=== PATIENT | male | born 2005 | race Caucasian/White ===

== ENCOUNTER 2023-11-26 14:27 | Emergency (ER) | payer OTHER, SELFPAY ==
[2023-11-26 14:28] VITALS: BP 140/79; PULSE 75; RESP 18; TEMP 36.6; O2SAT 99; BMI 23.6
--- NOTE | 2023-11-26 14:55 | HMH.EDGENADL ---
Discharge Plan Disposition Patient Disposition: Home, Self-Care Condition: Good Prescriptions Prescriptions: New ondansetron 4 mg tablet,disintegrating 4 mg PO Q6H PRN (Reason: nausea and vomiting) Qty: 14 0RF Referrals Follow up/Referrals: Provider,Referral, MD [Primary Care Provider] - See instructions Activity Restrictions/Add. Instructions Additional Instructions/Restrictions: You were seen in the ED today due to nausea and vomiting. Please stay hydrated at home. Prescription for Zofran for nausea has been provided. Return to the ED if symptoms worsen or if new concerning symptoms arise. Thank you. Clinical Impressions Clinical Impression: Gastroenteritis Instructions Patient Instructions: DI for Viral Gastroenteritis -- Adult Discharge ED Provider: Rom Gaspar General Adult HPI General Chief complaint: Nausea/Vomiting/Diarrhea Stated complaint: vomiting, abdominal pain Time Seen by Provider: 11/26/23 14:50 Mode of Arrival: Ambulatory Source of Information: Patient Limitations: No Limitations Description of Symptoms (Recalled from ER Triage Doc. by RN): Patient reports drinking alcohol on the and then woke up the vomiting. States he went to [facility] that day they gave him fluids and he signed out AMA. Presents today with the complaint of nausea and vomiting. History of Present Illness HPI narrative: Patient is an otherwise healthy 18-year-old male presenting due to nausea and vomiting. Patient's girlfriend is present to help provide history. Patient states he had a few alcoholic beverages on the night of 11/22. He woke up the next morning vomiting and presented to outside hospital. States he was given IV fluids and Zofran and ultimately he left the hospital. States he felt well yesterday however upon waking up this morning he again had nausea and vomiting. Patient states since presenting to the hospital today his symptoms have improved. Currently he denies any nausea or abdominal pain. States he has had some diarrhea. Denies any fevers, difficulty urinating. Related Data Previous Rx's Medication Instructions Recorded ondansetron 4 mg disintegrating 4 mg PO Q6H PRN nausea and 11/26/23 tablet vomiting #14 tabs Allergies Allergy/AdvReac Type Severity Reaction Status Date / Time No Known Allergies Allergy Verified 11/26/23 14:38 [facility] Disclaimer: The information contained in this section may have been updated after the patient was seen, as this information can be updated by other users. Social History Smoking Status: Current every day smoker alcohol intake: current current occupational status: employed Travel in the last 8 weeks: Inside the [place] ROS Obtained: Yes All systems reviewed & no additional complaints except as documented Gastrointestinal Gastrointestingal: Reports diarrhea, nausea and vomiting Physical Exam General General appearance: alert and in no apparent distress Head Head exam: atraumatic, normocephalic and normal inspection Eye Eye exam: Present normal appearance, PERRL and EOMI ENT ENT exam: Present normal exam, normal oropharynx, mucous membranes moist, TM's normal bilaterally and normal external ear exam Neck Neck exam: Present normal inspection, full ROM and trachea midline; Absent meningismus or lymphadenopathy Chest Chest inspection: Present normal inspection and symmetric chest wall rise; Absent tenderness Respiratory Respiratory exam: Present normal lung sounds bilaterally; Absent respiratory distress Cardiovascular Cardiovascular exam: Present regular rate and normal rhythm; Absent JVD Abdominal Exam Abdominal exam: Present soft and normal bowel sounds; Absent distention, tenderness or guarding Extremities Exam Extremities exam: Present normal inspection, full ROM and normal capillary refill; Absent calf tenderness Back Exam Back exam: Present normal inspection; Absent tenderness Neurological Exam Neurological exam: Present alert and oriented X3 Psychiatric Psychiatric exam: Present normal affect and normal mood Skin Skin exam: Present warm, dry, intact and normal color Lymphatic Lymphatic Findings: no adenopathy Medical Decision Making Daniel Inquiry Pt receiving controlled substance: No Daniel was queried for this patient: No Vital Signs: 11/26/23 14:28 11/26/23 15:15 Temperature 97.8 F Temperature Source Oral Pulse Rate 70 Pulse Rate [Radial] 75 Respiratory Rate 18 Blood Pressure 119/72 Blood Pressure [Right Arm] 140/79 Blood Pressure Mean [Right Arm] 99 Blood Pressure Source [Right Arm] Automatic Cuff Blood Pressure Position [Right Arm] Sitting 02 Sat by Pulse Oximetry 99 100 Oxygen Delivery Method Room Air Lab Data Lab Results 11/26/23 14:41: WBC 11.3, RBC 4.98, Hgb 15.3, Hct 44.2, MCV 88.8, MCH 30.8, MCHC 34.7, RDW 12.7, Plt Count 190, MPV 8.6, Neut % (Auto) 81.7 H, Lymph % (Auto) 12.3, [place] % (Auto) 5.3, Eos % (Auto) 0.4, Baso % (Auto) 0.4, Neut # (Auto) 9.3 H, Lymph # (Auto) 1.4, [place] # (Auto) 0.6, Eos # (Auto) 0.0, Baso # (Auto) 0.1, Sodium 137, Potassium 3.4 L, Chloride 105, Carbon Dioxide 26, Anion Gap 9.4, BUN 15, Creatinine 0.90, Estimated Creat Clear 134, Estimated GFR 108, Est GFR ( Amer) 130, Glucose 122 H, Calcium 9.5, Total Bilirubin 0.8, AST 34, ALT 28, Alkaline Phosphatase 63, Total Protein 7.4, Albumin 4.6, Globulin 2.8, Albumin/Globulin Ratio 1.6, Lipase 84 11/26/23 14:41 11/26/23 14:41 Orders (Tests/Meds): ED MEDICATIONS Generic Name Dose Route Start Last Admin Trade Name Freq PRN Reason Stop Dose Admin Sodium Chloride 10 ml 11/26/23 14:47 Sodium Chloride 0.9% 10ml Flush Syringe IV 12/26/23 14:46 NEEDED PRN Maintain IV Site Discontinued Medications Generic Name Dose Route Start Last Admin Trade Name Freq PRN Reason Stop Dose Admin Lactated Ringer's 1,000 mls @ 999 mls/hr 11/26/23 14:54 11/26/23 14:58 Lactated Ringer's 1000 Ml Bag IV 11/26/23 15:54 999 mls/hr .Q1H1M ONE Administration Potassium Chloride 40 meq 11/26/23 16:05 11/26/23 16:15 Potassium Chloride 20meq Tab PO 11/26/23 16:06 40 meq ONCE ONE Administration ORDERS Category Date Time Status CBC w/Auto Diff [Complete Blood Count Auto Diff] Stat Lab 11/26/23 14:41 Completed CMP [Comprehensive Metabolic Panel] Stat Lab 11/26/23 14:41 Completed Lipase Stat Lab 11/26/23 14:41 Completed Medical Decision Narrative: In summary, patient is otherwise healthy 18-year-old male, evaluated in the emergency department today due to nausea and vomiting. On arrival, patient is hemodynamically stable with normal vital signs. On examination, patient has nontender abdomen, overall well-appearing. Differential diagnosis includes but is not limited to gastroenteritis, acute intoxication, metabolic derangement. Patient given 1 L LR bolus. Workup initiated including CBC, CMP, lipase. Labs independently interpreted by me and significant for potassium 3.4, otherwise unremarkable labs. Patient given 40 mill equivalents oral potassium chloride repletion. On reevaluation, patient reports he feels well. Symptoms are controlled and he is tolerating oral intake without difficulty. He is appropriate for discharge at this time. Prescription for Zofran for nausea provided. Patient counseled on home care, given strict return precautions and agreeable to plan. Additional history was provided by patient's girlfriend. I considered the utility of obtaining imaging, but decided against this because patient has benign abdominal exam. I considered admitting the patient to the hospital for observation, and in shared decision-making with patient, decided on outpatient management. Critical Care Critical Care Time Critical Care Time: No
[2023-11-26] MEDS: LACTATED RINGERS 1000ML 1,000 ML 999 ML IV (14:58)
[2023-11-26 15:00] LABS: Basophils # 0.1 K/mm3 (0-0.2); Basophils % 0.4 % (0.1-2.0); Eosinophils % 0.4 % (0.1-12.0); Hematocrit 44.2 % (42.0-52.0); Hemoglobin 15.3 g/dL (14.1-18.0); Lymphocytes # 1.4 K/mm3 (0.7-4.5); Lymphocytes % 12.3 % (10-50); Mean Corpuscular HGB Conc 34.7 g/dL (31.8-35.4); Mean Corpuscular Hemoglobin 30.8 pg (27.0-31.2); Mean Corpuscular Volume 88.8 fl (80-94); Mean Platelet Volume 8.6 fl (7.4-10.4); Monocytes # 0.6 K/mm3 (0.1-1.0); Monocytes % 5.3 % (1.7-9.3); Neutrophils # 9.3 K/mm3 (1.8-7.8); Neutrophils % 81.7 % (37.0-80.0); Platelet Count 190 K/mm3 (142-424); Red Blood Count 4.98 M/mm3 (4.60-6.20); Red Cell Distribution Width 12.7 % (11.5-17.5); White Blood Count 11.3 K/mm3 (4.5-13.0)
[2023-11-26 15:08] LABS: Chloride 105 mmol/L (98-107); Potassium 3.4 mmoL/L (3.5-5.1); Sodium 137 mmol/L (136-145)
[2023-11-26 15:10] LABS: Alanine Aminotransferase 28 U/L (12-78); Alkaline Phosphatase 63 U/L (38-126); Aspartate Amino Transferase 34 U/L (17-59); Bilirubin,Total 0.8 mg/dl (0.2-1.3); Blood Urea Nitrogen 15 mg/dl (9-20); Creatinine Clearance Estimated 134 mL/min (50-200); Estimated Glomerular Filt Rate 108 ml/min (>60); GFR (African American) 130 ML/MIN (>60)
[2023-11-26 15:11] LABS: Albumin Level 4.6 g/dl (3.5-5.0); Albumin/Globulin Ratio 1.6 (1.1-1.8); Anion Gap 9.4 mEq/L (5-15); Calcium 9.5 mg/dl (8.4-10.2); Carbon Dioxide 26 mmol/L (22.0-30.0); Globulin 2.8 g/dL (1.3-3.2); Glucose 122 mg/dl (74-100); Lipase 84 U/L (23-300); Total Protein,Serum 7.4 g/dl (6.3-8.2)
[2023-11-26 15:15] VITALS: BP 119/72; PULSE 70; O2SAT 100
[2023-11-26 16:00] VITALS: BP 110/61; PULSE 72; O2SAT 99
[2023-11-26] MEDS: POTASSIUM CHLORIDE 20MEQ TAB 40 MEQ PO (16:15)
[2023-11-26 16:39] VITALS: BP 110/61; PULSE 72; RESP 16; TEMP 36.6; O2SAT 99
== END 2023-11-26 16:40 | disposition home or self-care (01) ==
PROVIDERS: Emergency Provider Student in an Organized Health Care Education/Training Program
DX: E87.6 Hypokalemia (principal); R11.2 Nausea with vomiting, unspecified; K52.9 Noninfective gastroenteritis and colitis, unspecified; F17.210 Nicotine dependence, cigarettes, uncomplicated
CPT/HCPCS: 80053; 83690; 85025; 96374; 99284

== ENCOUNTER 2024-02-26 16:09 | Emergency (ER) | payer OTHER, SELFPAY ==
[2024-02-26 16:15] VITALS: BP 119/58; PULSE 54; RESP 18; TEMP 36.6; O2SAT 100; BMI 23.1
--- NOTE | 2024-02-26 16:19 | ED_ITS ---
Discharge Plan Disposition Patient Disposition: Home, Self-Care Condition: Good Prescriptions Prescriptions: New ibuprofen [IBU] 800 mg tablet 800 mg PO Q8HP PRN (Reason: Moderate Pain) Qty: 30 0RF Referrals Follow up/Referrals: Provider,Referral, [Primary Care Provider] - See instructions Deborah Platt DPM [Staff Physician] - See instructions Activity Restrictions/Add. Instructions Additional Instructions/Restrictions: Rest the extremity, apply ice for 15 minutes as tolerated three or four times per day, Wear the gauri wrap for compression, Elevate the extremity as tolerated while you are resting. Take ibuprofen for pain. I sent in a prescription to your pharmacy. Follow up with Dr. Platt (podiatry). I put in a referral but you need to call her office and schedule an appointment. Follow up with your regular doctor. GO TO THE ER FOR ANY WORSENING SYMPTOMS Clinical Impressions Clinical Impression: Right foot sprain, Right ankle sprain Stand Alone Forms Stand Alone Forms: Work/School Release Instructions Patient Instructions: DI for Ankle Sprain, DI for Foot Sprain Discharge ED Provider: Rizwan Gastelum [facility] General Stated complaint: AO02/24 RT ankle inj Time Seen by Provider: 02/26/24 16:19 History of Present Illness Provider Complaint: He states that he was running on a trail when he twisted his right ankle. This happened yesterday. He has had right ankle pain and swelling since then. Related Data Previous Rx's Medication Instructions Recorded ibuprofen 800 mg tablet (IBU) 800 mg PO Q8HP PRN Moderate Pain 02/26/24 #30 tabs Allergies Allergy/AdvReac Type Severity Reaction Status Date / Time No Known Allergies Allergy Verified 02/26/24 16:26 [facility] Disclaimer: The information contained in this section may have been updated after the patient was seen, as this information can be updated by other users. Social History (Updated 11/26/23 @ 16:37 by Rom Gaspar MD) Smoking Status: Current every day smoker alcohol intake: current current occupational status: employed Travel in the last 8 weeks: Inside the [place] ROS Obtained: Yes All systems reviewed & no additional complaints except as documented Constitutional Constitutional: Denies chills and Denies fever(s) Eyes Eyes: Denies eye discharge ENT Ears, Nose, Mouth, and Throat: Denies dizziness, Denies otalgia and Denies sore throat Cardiovascular Cardiovascular: Denies chest pain Respiratory Respiratory: Denies shortness of breath, Denies chest congestion, Denies cough, Denies stridor and Denies wheezing Gastrointestinal Gastrointestingal: Denies nausea or vomiting Musculoskeletal Musculoskeletal: Reports as per HPI Integumentary/Breasts Skin/Breast: Denies redness, Denies rash and Denies wounds Neurologic Neurologic: Denies dizziness and Denies paresthesias Allergic/Immunologic Allergic/Immunologic: Denies wheezing Physical Exam General General appearance: alert and in no apparent distress Head Head exam: atraumatic, normocephalic and normal inspection Eye Eye exam: Present normal appearance, PERRL and EOMI ENT ENT exam: Present normal exam, normal oropharynx, mucous membranes moist, TM's normal bilaterally and normal external ear exam Neck Neck exam: Present normal inspection, full ROM and trachea midline; Absent meningismus or lymphadenopathy Chest Chest inspection: Present normal inspection and symmetric chest wall rise; Absent tenderness Respiratory Respiratory exam: Present normal lung sounds bilaterally; Absent respiratory distress Cardiovascular Cardiovascular exam: Present regular rate and normal rhythm; Absent JVD Abdominal Exam Abdominal exam: Present soft and normal bowel sounds; Absent distention, tenderness or guarding Extremities Exam Extremities exam: Present normal capillary refill; Absent calf tenderness Expanded Lower Extremity Exam Right: Knee exam: Present normal inspection, full ROM and knee extension intact; Absent tenderness Lower leg exam: Present normal inspection, full ROM and Achilles tendon intact; Absent tenderness or Homans' sign Ankle exam: Present full ROM, tenderness and swelling; Absent abrasion, laceration, ecchymosis, deformity, crepitus, dislocation, erythema, tenderness over talofibular lig or anterior draw sign Foot/toe exam: Present full ROM and tenderness; Absent swelling, abrasion, laceration, ecchymosis, deformity, crepitus, dislocation, erythema, amputation, puncture wound, foreign body, calcaneal tenderness, tenderness at base of 5th metatarsal, nail avulsion or subungual hematoma Neurovascular/Tendon exam: Present normal capillary refill, normal 2-point discrimination and normal fine/light touch; Absent pulse deficit, motor deficit, sensory deficit, tendon deficit, extremity cold to touch or pallor Gait: observed and normal Back Exam Back exam: Present normal inspection; Absent tenderness Neurological Exam Neurological exam: Present alert and oriented X3 Psychiatric Psychiatric exam: Present normal affect and normal mood Skin Skin exam: Present warm, dry, intact and normal color Lymphatic Lymphatic Findings: no adenopathy Medical Decision Making Medical Records Medical records reviewed: No I reviewed the patient's medical records. Daniel Inquiry Pt receiving controlled substance: No Radiology Data #1: Image(s): Ankle Image Reviewed: Yes I reviewed the patient's radiology image and Yes I have reviewed radiologist's interpretation Preliminary Findings: No Fracture Seen Accession No. 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 Views: 3 or more views. COMPARISON: No relevant prior studies available. FINDINGS: Bones/joints: Normal. Soft tissues: Normal. IMPRESSION: No acute findings.
--- NOTE | 2024-02-26 16:20 | XR_ITS ---
PROCEDURE INFORMATION: Exam: XR Right Foot Exam date and time: 02/26/2024 4:17 PM Age: 18 years old Clinical indication: Pain; Foot; Right TECHNIQUE: Imaging protocol: Radiologic exam of the right foot. Views: 3 or more views. COMPARISON: CR Ankle R 02/26/2024 4:15 PM FINDINGS: Bones/joints: Normal. Soft tissues: Normal. IMPRESSION: No acute findings.
[2024-02-26 17:49] VITALS: BP 119/58; PULSE 54; RESP 18; TEMP 36.6; O2SAT 100
== END 2024-02-26 17:49 | disposition home or self-care (01) ==
PROVIDERS: Emergency Provider Nurse Practitioner Family
DX: S93.401A Sprain of unspecified ligament of right ankle, initial encounter (principal); S93.601A Unspecified sprain of right foot, initial encounter; X50.1XXA Overexertion from prolonged static or awkward postures, initial encounter
CPT/HCPCS: 73610; 73630; 99204; 99212; G0463

== ENCOUNTER 2024-05-28 00:01 | Emergency (ER) | payer OTHER, SELFPAY ==
[2024-05-28 00:02] VITALS: BP 162/92; PULSE 80; RESP 16; TEMP 36.2; O2SAT 100; BMI 23.6
--- NOTE | 2024-05-28 00:10 | ED_ITS ---
Discharge Plan Disposition Patient Disposition: Home, Self-Care Prescriptions Prescriptions: New propranolol 40 mg tablet 40 mg PO DAILY Qty: 30 0RF No Action ibuprofen [IBU] 800 mg tablet 800 mg PO Q8HP PRN (Reason: Moderate Pain) Qty: 30 0RF Referrals Follow up/Referrals: Provider,Referral, [Primary Care Provider] - See instructions Activity Restrictions/Add. Instructions Additional Instructions/Restrictions: Recommend taking Tylenol and ibuprofen 30 to 60 minutes prior to sexual activity. If this does not work, recommend taking propranolol as prescribed about 30 to 60 minutes prior to sexual activity. Recommend keeping a log of your blood pressure at home and following with your PCP as soon as possible for further assessment as your symptoms may be related to high blood pressure.. Clinical Impressions Clinical Impression: Coital headache, HTN (hypertension) Print Language Print Language: German Discharge ED Provider: Yunior Coy General Adult HPI General Chief complaint: PAIN Stated complaint: Headache Time Seen by Provider: 05/28/24 00:06 History of Present Illness HPI narrative: 18-year-old male presents for intermittent headache associated with sexual activity. He reports it happens prior to orgasm, is generalized and sharp in nature. Last for minutes to hours afterwards. He reports he currently does not have a headache. He reports symptoms started over the last few days. He also reports that he sometimes gets a headache with exertion at work, that has been going on for a while . He denies any other associated neurologic symptoms when he has the headaches such as vision changes, numbness weakness dizziness etc. Reports no recent trauma. He denies any significant past medical history. Related Data Previous Rx's ?Medication ?Instructions ?Recorded ibuprofen 800 mg tablet (IBU) 800 mg PO Q8HP PRN Moderate Pain 02/26/24 #30 tabs propranolol 40 mg tablet 40 mg PO DAILY #30 tabs 05/28/24 Allergies Allergy/AdvReac Type Severity Reaction Status Date / Time No Known Allergies Allergy Verified 02/26/24 16:26 [facility] Disclaimer: The information contained in this section may have been updated after the patient was seen, as this information can be updated by other users. Social History (Updated 11/26/23 @ 16:37 by Rom Gaspar MD) Smoking Status: Current some day smoker alcohol intake: current current occupational status: employed Travel in the last 8 weeks: [place] the [place] ROS Obtained: Yes All systems reviewed & no additional complaints except as documented Physical Exam General General appearance: alert and in no apparent distress Head Head exam: atraumatic and normocephalic Eye Eye exam: Present normal appearance, PERRL and EOMI ENT ENT exam: Present normal oropharynx and normal external ear exam Neck Neck exam: Present normal inspection and full ROM Chest Chest inspection: Present normal inspection and symmetric chest wall rise; Absent tenderness Respiratory Respiratory exam: Present normal lung sounds bilaterally; Absent respiratory distress Cardiovascular Cardiovascular exam: Present regular rate and normal rhythm Abdominal Exam Abdominal exam: Present soft; Absent distention, tenderness or guarding Extremities Exam Extremities exam: Present normal inspection; Absent edema or joint swelling Back Exam Back exam: Present normal inspection; Absent tenderness Neurological Exam Neurological exam: Present alert, oriented X3, CN II-XII intact, normal gait and reflexes normal; Absent motor sensory deficit Psychiatric Psychiatric exam: Present normal affect and normal mood Skin Skin exam: Present warm, dry and normal color Lymphatic Lymphatic Findings: no adenopathy Medical Decision Making Medical Records Medical records reviewed: Yes I reviewed the patient's medical records. Screening: Per USPSTF and CDC recommendations, given the prevalence of disease in our region, it is our hospital?s policy to screen for HIV and viral Hepatitis for all patients aged 18 and over and those with ongoing risk factors. Daniel Inquiry Pt receiving controlled substance: No Daniel was queried for this patient: No Vital Signs: 05/28/24 00:02 Temperature 97.2 F L Temperature Source Oral Pulse Rate [Right Radial] 80 Respiratory Rate 16 Blood Pressure [Right Arm] 162/92 H Blood Pressure Mean [Right Arm] 115 Blood Pressure Source [Right Arm] Automatic Cuff 02 Sat by Pulse Oximetry 100 Oxygen Delivery Method Room Air Lab Data Lab results reviewed: Yes I reviewed the patient's lab results. Orders (Tests/Meds): ORDERS Category Date Time Status CT head/brain wo con Stat Cat Scan 05/28/24 00:20 Completed Medical Decision Narrative: 18-year-old male presents for intermittent preorgasmic headache without other neurologic symptoms. Currently headache free. History was obtained via interactive discussion with patient, significant other. On arrival, patient is [afebrile, hemodynamically stable, satting appropriately, alert, oriented x4, GCS 15], moving all extremities spontaneously. Full physical exam performed and significant for no focal neurologic deficits, patient reports no current headache. Patient's initial blood pressure was hypertensive with systolic of 160. Differential includes but is not limited to primary headache associated with sexual activity, intracranial hemorrhage, mass lesion, vascular lesion, hypertension. Workup initiated including noncontrast CT head. Blood work, CTA head and neck was considered, but deemed unnecessary due to asymptomatic patient, history consistent with primary headache associated with sexual activity. Given patient history, exam and workup, patient's presentation most likely represents primary headache associated with sexual activity. Headache may also be the result of hypertension. His blood pressure in the ER was systolic of 160. He reports that his brother, 24 years old, was recently diagnosed with high blood pressure and put on blood pressure medication. He reports that he has seen a PCP, but has not seen in the last year. I encouraged him to monitor his blood pressure at home and to follow-up with PCP for further assessment and initiation of medications. I encouraged him to take Tylenol and ibuprofen prior to sexual activity, if this does not work, I prescribed him propranolol to take as well. Return precautions given for signs and symptoms of neurologic deficit. Procedures Risk/Benefits of Procedure(s) Were Explained: Yes Critical Care Critical Care Time Critical Care Time: No
--- NOTE | 2024-05-28 00:20 | CT_ITS ---
PROCEDURE INFORMATION: Exam: CT Head Without Contrast Exam date and time: 05/28/2024 12:31 AM Age: 18 years old Clinical indication: Pain; Headache; Additional info: Exertional and coital headache TECHNIQUE: Imaging protocol: Computed tomography of the head without contrast. Radiation optimization: All CT scans at this facility use at least one of these dose optimization techniques: automated exposure control; mA and/or kV adjustment per patient size (includes targeted exams where dose is matched to clinical indication); or iterative reconstruction. COMPARISON: No relevant prior studies available. FINDINGS: Brain: No hemorrhage. Unremarkable white matter. No mass effect. Preserved swann-white interfaces. Cerebral ventricles: No ventriculomegaly. Paranasal sinuses: Visualized sinuses are unremarkable. No fluid levels. Mastoid air cells: Visualized mastoid air cells are well aerated. Bones: Unremarkable. No acute fracture. Soft tissues: Unremarkable. IMPRESSION: No evidence of acute intracranial hemorrhage, mass effect, or edema.
[2024-05-28 00:58] VITALS: BP 128/74; PULSE 72; RESP 16; TEMP 36.7; O2SAT 98
== END 2024-05-28 01:03 | disposition home or self-care (01) ==
PROVIDERS: Emergency Provider Emergency Medicine
DX: G44.82 Headache associated with sexual activity (principal); R03.0 Elevated blood-pressure reading, without diagnosis of hypertension
CPT/HCPCS: 70450; 99284

== ENCOUNTER 2025-02-14 13:09 | Emergency (ER) | payer SELFPAY ==
[2025-02-14] VITALS (9 sets, daily range): BP systolic 117–165; BP diastolic 63–120; PULSE 56–93; RESP 16–18; TEMP 36.4–36.5; O2SAT 97–100; BMI 24.2
--- NOTE | 2025-02-14 13:18 | CT_ITS ---
FINAL REPORT TECHNIQUE: Axial images through the abdomen and pelvis were performed without contrast. This study was performed with techniques to keep radiation doses as low as reasonably achievable, (ALARA). Individualized dose reduction techniques using automated exposure control or adjustment of mA and/or kV according to the patient's size were employed. CLINICAL HISTORY: abdominal pain/vomiting FINDINGS: Abdomen: The lung bases are clear. The liver parenchyma is homogeneous. The gallbladder is present. The spleen, pancreas, adrenals and kidneys are unremarkable. There are no normally dilated loops of small bowel. Pelvis: The urinary bladder is unremarkable. There is mild increased attenuation within the appendix but no discrete appendicolith or inflammation is identified. There is no pelvic mass or inflammation. IMPRESSION: No acute abnormality. Reviewed, Interpreted and Dictated by Waldo Lopez MD Transcribed by Keyla Goncalves Authenticated and [facility]
--- NOTE | 2025-02-14 13:23 | ED_ITS ---
<Statement entered by Jose Luis Melendrez MD - 02/15/25 07:25> I was consulted by the MELISSA, and we discussed the complexity of the problems being addressed. I approved the treatment and management plan for this patient's care in the emergency department, thus performing a substantive portion of the medical decision making. Jose Luis Melendrez MD, JOSELYN, FACEP Discharge Plan Disposition Patient Disposition: Home, Self-Care Condition: Good Prescriptions Prescriptions: New promethazine 25 mg tablet 25 mg PO Q6H PRN (Reason: nausea and vomiting) Qty: 10 0RF potassium chloride 10 mEq capsule, extended release 10 meq PO BID Qty: 10 0RF No Action ibuprofen [IBU] 800 mg tablet 800 mg PO Q8HP PRN (Reason: Moderate Pain) Qty: 30 0RF propranolol 40 mg tablet 40 mg PO DAILY Qty: 30 0RF Referrals Follow up/Referrals: Provider,Referral, [Primary Care Provider, Medical] - See instructions Activity Restrictions/Add. Instructions Additional Instructions/Restrictions: Increase fluids and rest. Take Phenergan as needed for nausea. Please follow- up with your PCP for further workup and treatment. If you need further assistance please return to the ED. Clinical Impressions Clinical Impression: Dehydration, Vomiting, Hypokalemia, Hypomagnesemia Instructions Patient Instructions: DI for Nausea -- Adult, Nausea and Vomiting-Adult Print Language Print Language: Persian Discharge ED Provider: Cade Manzanares General Adult HPI <Rachana Ian (ED), SALES AGENT - Last Filed: 02/14/25 16:45> General Chief complaint: Nausea/Vomiting/Diarrhea Stated complaint: vomiting chills diarrhea abd Time Seen by Provider: 02/14/25 13:15 History of Present Illness HPI narrative: This is a 19-year-old male who presents to the ED today for 2 days of nausea and vomiting and dyspepsia. On Father's Day spaanneetti and has been vomiting since Wednesday. His abdominal pain started on on Wednesday initially. He did not start vomiting until Wednesday. Significant other states that he has been nonstop vomiting since Wednesday with abdominal pain 3 out of 10. Patient takes no medications every day. Only history includes gastroenteritis and hypertension. Patient is unable to tolerate p.o. fluids or food at this time. No fever but has had chills. Onset (ago): day(s) (2) Location: abdomen Radiation: non-radiation Severity: similar to prior episodes Severity scale (1-10): 3 Associated symptoms: loss of appetite and nausea/vomiting Related Data Previous Rx's ?Medication ?Instructions ?Recorded ibuprofen 800 mg tablet (IBU) 800 mg PO Q8HP PRN Moder ate Pain 02/26/24 #30 tabs propranolol 40 mg tablet 40 mg PO DAILY #30 tabs 05/01 05/23 potassium chloride 10 mEq 10 meq PO BID #10 caps 02/14 capsule,extended release promethazine 25 mg tablet 25 mg PO Q6H PRN nausea and 02/14/25 vomiting #10 tabs Allergies Allergy/AdvReac Type Severity Reaction Status Date / Time No Known Allergies Allergy Verified 02/26/24 16:26 PFSH <Rachana Sosa (ED), SALES AGENT - Last Filed: 02/14/25 16:45> PFS Disclaimer: The information contained in this section may have been updated after the patient was seen, as this information can be updated by other users. Social History (Updated 11/26/23 @ 16:37 by Rom Gaspar MD) Smoking Status: Never smoker alcohol intake: current current occupational status: employed Travel in the last 8 weeks?: Inside the [place] Have you lived/traveled outside US in past 30 days?: No Contact w/someone who lives/traveled outside US past 30 days?: No Exposure to someone with infectious disease in past 14 days?: No Do you have a fever (greater than 100.4 F or 38 C)?: No Have you tested positive for COVID-19?: No Exposed to someone with COVID-19 in past 14 days?: No Do you have a sore throat?: No Do you have a cough?: No Do you have any weakness?: Yes Do you have any diarrhea?: Yes Are you experiencing any unusual bleeding?: No Do you have any muscle aches/pain?: Yes Do you have any abdominal pain?: Yes Are you experiencing loss of taste or smell?: No <Rachana Sosa (ED), SALES AGENT - Last Filed: 02/14/25 16:45> ROS Obtained: Yes Systems reviewed as appropriate & no additional complaints except as documented Constitutional Constitutional: Reports as per HPI Physical Exam <Rachana Sosa (ED), SALES AGENT - Last Filed: 02/14/25 16:45> General General appearance: alert and in distress Comment: Vomiting bile Head Head exam: atraumatic and normocephalic Eye Eye exam: Present normal appearance, PERRL and EOMI ENT ENT exam: Present normal oropharynx and mucous membranes moist Neck Neck exam: Present full ROM and trachea midline Respiratory Respiratory exam: Present normal lung sounds bilaterally Cardiovascular Cardiovascular exam: Present regular rate, normal rhythm, normal heart sounds, +S1 and +S2 Abdominal Exam Abdominal exam: Present soft and normal bowel sounds Abdominal tenderness: Present diffuse Extremities Exam Extremities exam: Present normal inspection, full ROM and normal capillary refill Neurological Exam Neurological exam: Present alert, oriented X3 and normal gait Skin Skin exam: Present warm, dry and intact Medical Decision Making <Rachana Sosa (ED), SALES AGENT - Last Filed: 02/14/25 16:45> Medical Records Screening: Per USPSTF and CDC recommendations, given the prevalence of disease in our region, it is our hospital?s policy to screen for HIV and viral Hepatitis for all patients aged 18 and over and those with ongoing risk factors. Daniel Inquiry Pt receiving controlled substance: No Daniel was queried for this patient: No Vital Signs: 02/14/25 13:21 02/14/25 14:23 02/14/25 14:30 Temperature 97.7 F Temperature Source Oral Pulse Rate 68 66 Pulse Rate [Left] 93 H Respiratory Rate 18 Blood Pressure 130/71 121/78 Blood Pressure [Left Arm] 161/73 H Blood Pressure Mean Blood Pressure Mean [Left Arm] 102 Blood Pressure Source Blood Pressure Position 02 Sat by Pulse Oximetry 100 97 97 Oxygen Delivery Method Room Air Room Air Room Air 02/14/25 15:01 02/14/25 15:31 02/14/25 16:00 Temperature Temperature Source Pulse Rate 68 78 59 L Pulse Rate [Left] Respiratory Rate 18 Blood Pressure 123/67 165/120 H 117/63 Blood Pressure [Left Arm] Blood Pressure Mean 79 133 77 Blood Pressure Mean [Left Arm] Blood Pressure Source Blood Pressure Position 02 Sat by Pulse Oximetry 97 97 99 Oxygen Delivery Method Room Air 02/14/25 16:30 02/14/25 17:06 02/14/25 17:07 Temperature 97.7 F 97.6 F Temperature Source Oral Pulse Rate 56 L 62 56 L Pulse Rate [Left] Respiratory Rate 18 16 18 Blood Pressure 121/81 124/69 121/81 Blood Pressure [Left Arm] Blood Pressure Mean 86 Blood Pressure Mean [Left Arm] Blood Pressure Source Automatic Cuff Blood Pressure Position Supine 02 Sat by Pulse Oximetry 98 Oxygen Delivery Method Room Air Lab Data Lab Results 02/14/25 13:17: SARS-CoV-2 (PCR) Not detected, Influenza A Untype (PCR) Not detected, Influenza Type B (PCR) Not detected 02/14/25 13:28: WBC 11.1 H, RBC 4.96, Hgb 15.0, Hct 41.1 L, MCV 82.9, MCH 30.2, MCHC 36.5 H, RDW 11.9, Plt Count 219, MPV 10.8 H, Neut % (Auto) 71.9, Lymph % (Auto) 19.3, Elbert % (Auto) 7.3, Eos % (Auto) 0.5, Baso % (Auto) 0.5, Neut # (Auto) 8.0 H, Lymph # (Auto) 2.1, Elbert # (Auto) 0.8, Eos # (Auto) 0.1, Baso # (Auto) 0.1, Sodium 137, Potassium 3.3 L, Chloride 105, Carbon Dioxide 23, Anion Gap 12.3, BUN 15, Creatinine 0.90, Estimated Creat Clear 137, Estimated GFR 107, Est GFR ( Amer) 129, Glucose 138 H, Calcium 10.1, Magnesium 1.4 L, Total Bilirubin 1.0, AST 37, ALT 29, Alkaline Phosphatase 56, Troponin I < 0.01, Total Protein 7.8, Albumin 4.9, Globulin 2.9, Albumin/Globulin Ratio 1.7, Lipase 244 02/14/25 16:05: Troponin I < 0.01 02/14/25 13:28 02/14/25 13:28 Orders (Tests/Meds): ED MEDICATIONS Discontinued Medications Generic Name Dose Route Start Last Admin Trade Name Freq PRN Reason Stop Dose Admin Sodium Chloride 1,000 mls @ 999 mls/hr 02/14/25 13:18 02/14/25 13:27 Sod Chlor 0.9% 1000ml Bag IV 02/14/25 14:18 999 mls/hr .Q1H1M ONE Administration Magnesium Sulfate 2 gm in 50 mls @ 50 mls/hr 02/14/25 14:07 02/14/25 14:21 Magnesium Sulfate 2gm/50ml Premix IV 02/14/25 15:06 50 mls/hr ONCE ONE Administration Ondansetron HCl 4 mg 02/14/25 13:18 02/14/25 13:28 Ondansetron 4mg/2ml Vial IV 02/14/25 13:19 4 mg ONCE ONE Administration Pantoprazole Sodium 40 mg 02/14/25 13:18 02/14/25 13:28 Pantoprazole 40mg Vial IV 02/14/25 13:19 40 mg ONCE ONE Administration Potassium Chloride 60 meq 02/14/25 14:07 02/14/25 14:22 Potassium Chloride 20meq Tab PO 02/14/25 14:08 60 meq ONCE ONE Administration Promethazine HCl 25 mg 02/14/25 13:45 02/14/25 13:56 Promethazine Hcl 25mg/Ml 1ml Vial IV 02/14/25 13:46 25 mg ONCE ONE Administration Sodium Chloride 10 ml 02/14/25 13:18 02/14/25 13:28 Sodium Chloride 0.9% 10ml Vial IV 03/16/25 13:17 10 ml NEEDED PRN Administration dilute protonix Sodium Chloride 25 ml 02/14/25 13:45 Sodium Chloride 0.9% 25ml Bag IV 02/14/25 13:46 ONCE ONE ORDERS Category Date Time Status CT abdomen pelvis wo con Stat Cat Scan 02/14/25 13:18 Completed CBC [Complete Blood Count Auto Diff] Stat Lab 02/14/25 13:28 Completed Comprehensive Metabolic Panel Stat Lab 02/14/25 13:28 Completed Lipase Stat Lab 02/14/25 13:28 Completed Magnesium Stat Lab 02/14/25 13:28 Completed Rapid PCR Covid and Flu A/B Stat Lab 02/14/25 13:17 Completed Trop I [Troponin I] Stat Lab 02/14/25 13:28 Completed Troponin I Q3H Lab 02/14/25 16:05 Completed Medical Decision Narrative: patient is a 19-year-old male presenting to the emergency department for evaluation of nausea and vomiting along with abdominal pain. Patient complains that this has been going on for the past 2 days he is unable to tolerate p.o. fluids or food. Patient is hemodynamically stable however he is vomiting upon exam, afebrile. Differential diagnosis includes viral illness, cholecystitis, ulcer, pancreatitis, among others. Workup will be conducted with hematologic labs, specific imaging including CT scan of abdomen. Initial inventions include crystalloid bolus, Zofran and Protonix. I ordered CT abdomen and pelvis with contrast but patient declined the contrast. We will do CT scan without. Initial workup reviewed by me [hematologic labs are remarkable for:]. [Imaging informally interpreted by me and remarkable for:] [Formal imaging read remarkable for:] Upon repeat evaluation [patient's pain is improved, appears better perfused, appears the same, appears worse, etc.]. Due to this [additional interventions, patient is appropriate for discharge, patient requires admission, etc.]. <Jose Luis Melendrez MD - Last Filed: 02/15/25 07:26> Vital Signs: 02/14/25 13:21 02/14/25 14:23 02/14/25 14:30 Temperature 97.7 F Temperature Source Oral Pulse Rate 68 66 Pulse Rate [Left] 93 H Respiratory Rate 18 Blood Pressure 130/71 121/78 Blood Pressure [Left Arm] 161/73 H Blood Pressure Mean Blood Pressure Mean [Left Arm] 102 Blood Pressure Source Blood Pressure Position 02 Sat by Pulse Oximetry 100 97 97 Oxygen Delivery Method Room Air Room Air Room Air 02/14/25 15:01 02/14/25 15:31 02/14/25 16:00 Temperature Temperature Source Pulse Rate 68 78 59 L Pulse Rate [Left] Respiratory Rate 18 Blood Pressure 123/67 165/120 H 117/63 Blood Pressure [Left Arm] Blood Pressure Mean 79 133 77 Blood Pressure Mean [Left Arm] Blood Pressure Source Blood Pressure Position 02 Sat by Pulse Oximetry 97 97 99 Oxygen Delivery Method Room Air 02/14/25 16:30 02/14/25 17:06 02/14/25 17:07 Temperature 97.7 F 97.6 F Temperature Source Oral Pulse Rate 56 L 62 56 L Pulse Rate [Left] Respiratory Rate 18 16 18 Blood Pressure 121/81 124/69 121/81 Blood Pressure [Left Arm] Blood Pressure Mean 86 Blood Pressure Mean [Left Arm] Blood Pressure Source Automatic Cuff Blood Pressure Position Supine 02 Sat by Pulse Oximetry 98 Oxygen Delivery Method Room Air Lab Data Lab results reviewed: Yes I reviewed the patient's lab results. Lab Results 02/14/25 13:17: SARS-CoV-2 (PCR) Not detected, Influenza A Untype (PCR) Not detected, Influenza Type B (PCR) Not detected 02/14/25 13:28: WBC 11.1 H, RBC 4.96, Hgb 15.0, Hct 41.1 L, MCV 82.9, MCH 30.2, MCHC 36.5 H, RDW 11.9, Plt Count 219, MPV 10.8 H, Neut % (Auto) 71.9, Lymph % (Auto) 19.3, Elbert % (Auto) 7.3, Eos % (Auto) 0.5, Baso % (Auto) 0.5, Neut # (Auto) 8.0 H, Lymph # (Auto) 2.1, Elbert # (Auto) 0.8, Eos # (Auto) 0.1, Baso # (Auto) 0.1, Sodium 137, Potassium 3.3 L, Chloride 105, Carbon Dioxide 23, Anion Gap 12.3, BUN 15, Creatinine 0.90, Estimated Creat Clear 137, Estimated GFR 107, Est GFR ( Amer) 129, Glucose 138 H, Calcium 10.1, Magnesium 1.4 L, Total Bilirubin 1.0, AST 37, ALT 29, Alkaline Phosphatase 56, Troponin I < 0.01, Total Protein 7.8, Albumin 4.9, Globulin 2.9, Albumin/Globulin Ratio 1.7, Lipase 244 02/14/25 16:05: Troponin I < 0.01 Orders (Tests/Meds): ED MEDICATIONS Discontinued Medications Generic Name Dose Route Start Last Admin Trade Name Freq PRN Reason Stop Dose Admin Sodium Chloride 1,000 mls @ 999 mls/hr 02/14/25 13:18 02/14/25 13:27 Sod Chlor 0.9% 1000ml Bag IV 02/14/25 14:18 999 mls/hr .Q1H1M ONE Administration Magnesium Sulfate 2 gm in 50 mls @ 50 mls/hr 02/14/25 14:07 02/14/25 14:21 Magnesium Sulfate 2gm/50ml Premix IV 02/14/25 15:06 50 mls/hr ONCE ONE Administration Ondansetron HCl 4 mg 02/14/25 13:18 02/14/25 13:28 Ondansetron 4mg/2ml Vial IV 02/14/25 13:19 4 mg ONCE ONE Administration Pantoprazole Sodium 40 mg 02/14/25 13:18 02/14/25 13:28 Pantoprazole 40mg Vial IV 02/14/25 13:19 40 mg ONCE ONE Administration Potassium Chloride 60 meq 02/14/25 14:07 02/14/25 14:22 Potassium Chloride 20meq Tab PO 02/14/25 14:08 60 meq ONCE ONE Administration Promethazine HCl 25 mg 02/14/25 13:45 02/14/25 13:56 Promethazine Hcl 25mg/Ml 1ml Vial IV 02/14/25 13:46 25 mg ONCE ONE Administration Sodium Chloride 10 ml 02/14/25 13:18 02/14/25 13:28 Sodium Chloride 0.9% 10ml Vial IV 03/16/25 13:17 10 ml NEEDED PRN Administration dilute protonix Sodium Chloride 25 ml 02/14/25 13:45 Sodium Chloride 0.9% 25ml Bag IV 02/14/25 13:46 ONCE ONE ORDERS Category Date Time Status CT abdomen pelvis wo con Stat Cat Scan 02/14/25 13:18 Completed CBC [Complete Blood Count Auto Diff] Stat Lab 02/14/25 13:28 Completed Comprehensive Metabolic Panel Stat Lab 02/14/25 13:28 Completed Lipase Stat Lab 02/14/25 13:28 Completed Magnesium Stat Lab 02/14/25 13:28 Completed Rapid PCR Covid and Flu A/B Stat Lab 02/14/25 13:17 Completed Trop I [Troponin I] Stat Lab 02/14/25 13:28 Completed Troponin I Q3H Lab 02/14/25 16:05 Completed Medical Decision Narrative: patient is a 19-year-old male presenting to the emergency department for evaluation of nausea and vomiting along with abdominal pain. Patient complains that this has been going on for the past 2 days he is unable to tolerate p.o. fluids or food. Patient is hemodynamically stable however he is vomiting upon exam, afebrile. Differential diagnosis includes viral illness, cholecystitis, ulcer, pancreatitis, among others. Workup will be conducted with hematologic labs, specific imaging including CT scan of abdomen. Initial inventions include crystalloid bolus, Zofran and Protonix. I ordered CT abdomen and pelvis with contrast but patient declined the contrast. We will do CT scan without. Labs and CT scan were performed and were unremarkable patient feeling better upon reassessment. Electrolytes replaced symptomatic medications improve the patient's overall condition. Patient discharged in stable and improved condition. Critical Care <Rachana Sosa (ED), SALES AGENT - Last Filed: 02/14/25 16:45> Critical Care Time Critical Care Time: No
[2025-02-14 13:24] LABS: Coronavirus 19, PCR Not Detected (NotDetected); Influenza A, PCR Not Detected (NotDetected); Influenza B, PCR Not Detected (NotDetected)
--- OUTSIDE RECORDS SUMMARY | 2025-02-14 13:24 | XMS_ITS | Data Portability ---
Author Organization [facility] Address [address] [place] [address] Assessment No assessment recorded. Plan of Treatment Reminders Order Date Submit Date Provider Last Modified By Organization Details Last Modified Time Details Appointments None recorded . Lab None recorded . Referral None recorded . Procedures None recorded . Surgeries None recorded . Imaging None recorded . Medication Orders Pepcid 20 mg tablet 023 04/01/20 23 [facility], [address] [place] [address], [phone], 3 16:09:22 Patient TargetsNo targets recorded. Patient InstructionsNo instructions recorded. Reason for Referral None Reported. Medical Equipment None Reported. Allergies No known drug allergies Medications Name Sig Start Date Stop Date Status Note LastModified by Organization Details LastModified Time prednisone 10 mg tablet take 6 tablets by mouth Day 1, 5 tablets on day 2, 4 tablets on day 3, 3 tablets on day 4, 2 tablets on day 5, and 1 tablet on day 6 active Not Available Not Available No t Available famotidine 20 mg tablet TAKE ONE TABLET BY MOUTH DAILY AT BEDTIME active Not Available Not Available N ot Available meclizine 25 mg tablet TAKE ONE TABLET BY MOUTH EVERY EIGHT HOURS NEEDED active Not Available Not Available No t Available albuterol sulfate HFA 90 mcg/actuatio n aerosol inhaler inhale 2 puffs by INHALATION route every 4 hours As needed active Not Available Not Available No t Available Vitals Date Recorded Body height Body mass index (BMI) [Percentile] Per age and sex Body mass index (BMI) Body weight Body temperature Oxygen saturation Oxygen saturation in Arterial blood by Pulse oximetry Systolic blood pressure Diastolic blood pressure Provider Name and Address Organization Details Last Updated DateTime 3 175.26 cm 45 % 22.4 kg/m2 28982.0 4 g 98.6 [degF] 97 % 97 % 131 mm[Hg] 73 mm[Hg] [facility] & [place] 3 14:59:31 Social History None recorded. 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 Family History Nothing Reported. Medical History No medical history recorded. Past Encounters Encounter ID Performer Location Encounter Start Date Encounter Closed Date Diagnosis/Indication Diagnosis SNOMED-CT Code Diagnosis ICD10 Code Diagnosis Note [id number] Vincent May MD [facility] [address] [id number] 04/01/2023 14:48:04 04/01/2023 16:15:29 Nonulcer dyspepsia 0229082 K30 Symptoms sound most compatible to over production gastric acid. We will try q.h.s. Pepcid. Prescripti on sent to pharmacy. If this helps can buy over-the-c ounter or request more prescripti on.Explain ed to the patient that he is not due for any screening testing this time. Recommend reducing or stopping his vaping. I explained that this still put him at risk for lung diseases and cancer.We will see as needed. Health Concerns Section Related Observation LastModified by Organization Detai ls LastModified Time None Recorded Concern Status LastModified by Organization Details LastModified Time None Recorded Advance Directives Directive None Recorded Payers Insurance Date Sequence Insurance Name Policy Number Policy Butler Covered Member ID Butler Member ID Guarantor Name 03/30/2023 1 [employer] [facility] (MEDICAID HMO) Darian Theurer [id number] Darian Theurealex Notes Date Note Type Note Provider Name and Address Organization Details Recorded Time 04/01/2023 text/html 17-year-old male here to become established as a new patient.Patient reports that he is in good health. He is not on any medications. He does vape nicotine. He is had no other major medical problems.As an infant patient was surgically treated for pyloric stenosis. He reports that for the last several years he is had episodes of vomiting in the morning if he does not eat something at night. He does state that he has a sensitive stomach and has had vomiting at other times. He denies any hematemesis or hematochezia.Lizz christensen does have a family history of hypertension with remote history of prostate cancer and heart disease.Patient does not drink. Vincent May MD [address] [place] [address], [phone], [facility] & [place] 04/01/2023 15:18:34
[2025-02-14] MEDS: 0.9 % SODIUM CHLORIDE 1000ML 1,000 ML 999 ML IV (13:27)
[2025-02-14] MEDS: PANTOPRAZOLE 40MG VIAL 40 MG IV (13:28)
[2025-02-14] MEDS: ONDANSETRON 4MG/2ML VIAL 4 MG IV (13:28)
[2025-02-14] MEDS: SODIUM CHLORIDE 0.9% 10ML VIAL 10 ML IV (13:28)
[2025-02-14 13:35] LABS: Basophils # 0.1 K/mm3 (0-0.2); Basophils % 0.5 % (0.1-2.0); Eosinophils # 0.1 Kmm3 (0.0-0.4); Eosinophils % 0.5 % (0.1-12.0); Hematocrit 41.1 % (42.0-52.0); Immature Granulocytes # 0.05 10^3uL; Immature Granulocytes % 0.5 %; Lymphocytes # 2.1 K/mm3 (0.7-4.5); Lymphocytes % 19.3 % (10-50); Mean Corpuscular HGB Conc 36.5 g/dL (31.8-35.4); Mean Corpuscular Hemoglobin 30.2 pg (27.0-31.2); Mean Corpuscular Volume 82.9 fl (80-94); Mean Platelet Volume 10.8 fl (7.4-10.4); Monocytes # 0.8 K/mm3 (0.1-1.0); Monocytes % 7.3 % (1.7-9.3); Neutrophils % 71.9 % (37.0-80.0); Nucleated Red Blood Cells # 0 10^3/uL; Nucleated Red Blood Cells % 0 %; Platelet Count 219 K/mm3 (142-424); Red Blood Count 4.96 M/mm3 (4.60-6.20); Red Cell Distribution Width 11.9 % (11.5-17.5); Red Cell Distribution Width-SD 35.8 fL; White Blood Count 11.1 K/mm3 (4.8-10.8)
[2025-02-14 13:46] LABS: Alanine Aminotransferase 29 U/L (12-78); Albumin Level 4.9 g/dl (3.5-5.0); Albumin/Globulin Ratio 1.7 (1.1-1.8); Alkaline Phosphatase 56 U/L (38-126); Anion Gap 12.3 mEq/L (5-15); Aspartate Amino Transferase 37 U/L (17-59); Blood Urea Nitrogen 15 mg/dl (9-20); Calcium 10.1 mg/dl (8.4-10.2); Carbon Dioxide 23 mmol/L (22.0-30.0); Chloride 105 mmol/L (98-107); Creatinine Clearance Estimated 137 mL/min (50-200); Estimated Glomerular Filt Rate 107 ml/min (>60); GFR (African American) 129 ML/MIN (>60); Globulin 2.9 g/dL (1.3-3.2); Glucose 138 mg/dl (74-100); Lipase 244 U/L (23-300); Magnesium 1.4 mg/dl (1.6-2.3); Potassium 3.3 mmoL/L (3.5-5.1); Sodium 137 mmol/L (136-145); Total Protein,Serum 7.8 g/dl (6.3-8.2)
[2025-02-14] MEDS: PROMETHAZINE HCL 25MG/ML 1ML VIAL 25 MG IV (13:56)
[2025-02-14 14:00] LABS: Troponin I < 0.01 ng/ml (0.00-0.034)
--- NOTE | 2025-02-14 14:09 | PC.NURSE ---
pt going for CT at this time with RAD via wheelchair
[2025-02-14] MEDS: MAGNESIUM SULFATE IN WATER 2 GM/50 ML PIGGYBACK IV (14:21)
[2025-02-14] MEDS: POTASSIUM CHLORIDE 20MEQ TAB 60 MEQ PO (14:22)
[2025-02-14 17:03] LABS: Troponin I < 0.01 ng/ml (0.00-0.034)
== END 2025-02-14 17:13 | disposition home or self-care (01) ==
PROVIDERS: Nurse Practitioner; Emergency Provider Emergency Medicine
DX: E86.0 Dehydration (principal); R10.817 Generalized abdominal tenderness; R11.2 Nausea with vomiting, unspecified; E87.6 Hypokalemia; E83.42 Hypomagnesemia
CPT/HCPCS: 74176; 80053; 83690; 83735; 84484; 85025; 87636; 96361; 96365; 96375; 99285; J2405; J2470; J2550; J3475; J7030